=== PATIENT | female | born 1975 | race Caucasian/White ===

== ENCOUNTER 2024-05-25 15:53 | Emergency (ER) | payer MEDICAID ==
[~2024-05-25] VITALS: Ht 149.9 cm; Wt 84.0 kg
[2024-05-25 16:04] VITALS: O2SAT 100
[2024-05-25] MEDS: ACETAMINOPHEN 325MG TABLET PO STA (18:58)
[2024-05-25] MEDS: ONDANSETRON 4MG ODT PO STA (18:58)
[2024-05-25 19:14] LABS: BASOPHILS % 0.7 % (0.0-2.0); EOSINOPHILS % 1.8 % (0.0-5.0); HEMATOCRIT. 38.6 % (36.0-48.0); HEMOGLOBIN. 12.9 g/dL (12.0-16.0); LYMPHOCYTES % 31.2 % (20.0-50.0); MEAN CORPUSCULAR HEMOGLOBIN 29.5 pg (28.0-32.0); MEAN CORPUSCULAR HGB CONC 33.4 g/dL (31.0-37.0); MEAN CORPUSCULAR VOLUME 88.3 fL (81.0-99.0); MEAN PLATELET VOLUME 7.4 fl (7.4-10.4); MONOCYTES % 6.2 % (2.0-8.0); NEUTROPHILS % 60.1 % (40.0-76.0); PLATELET 381 x1000/uL (130-400); RED BLOOD CELL COUNT 4.37 mill/uL (4.2-5.4); RED CELL DISTRIBUTION WIDTH 13.7 % (11.6-14.6); WHITE BLOOD COUNT 12.8 x1000/uL (4.5-11.0)
[2024-05-25 19:23] LABS: CHLORIDE 105 mEq/L (98-107); POTASSIUM 3.9 mEq/L (3.5-5.1); SODIUM 138 mEq/L (136-145)
[2024-05-25 19:24] LABS: CALCIUM 9.7 mg/dL (8.7-10.4); CARBON DIOXIDE 28 mEq/L (21-32); INR 0.9
[2024-05-25 19:29] LABS: CREATININE 0.8 mg/dL (0.6-1.0); GLUCOSE 98 mg/dL (70-105); UREA NITROGEN BLOOD 9 mg/dL (9-23)
[2024-05-25 19:33] LABS: HCG SCREEN NEGATIVE
[2024-05-25] MEDS ORDERED: AMOX1TAB16 MT (21:47)
[2024-05-25 22:26] VITALS: BP 124/65; PULSE 61; RESP 15; TEMP 36.83628; O2SAT 100
== END 2024-05-25 22:28 | disposition home or self-care (01) ==
LOC: ER 15:53
DX: L08.82 Omphalitis not of newborn (principal); Z90.49 Acquired absence of other specified parts of digestive tract; Z88.5 Allergy status to narcotic agent
CPT/HCPCS: 99284; 74176; 80048; 84703; 83605; 83690; 85025; 85610; 87040; 36415; Q0162

== ENCOUNTER 2024-08-15 22:02 | Emergency (ER) | payer MEDICAID ==
[~2024-08-15] VITALS: Ht 147.3 cm; Wt 84.5 kg
[~2024-08-15 22:02] MED LIST: AMOX1TAB16 MT
[2024-08-15 22:14] VITALS: BP 123/80; PULSE 74; RESP 18; TEMP 97.9; O2SAT 97; O2SAT 99
[2024-08-15] MEDS ORDERED: DOXY150T8 MT (22:36)
[2024-08-15] MEDS: IBUPROFEN 600MG TABLET PO ONE (23:00)
[2024-08-15] MEDS: ACETAMINOPHEN 325MG TABLET PO ONE (23:00)
== END 2024-08-15 23:00 | disposition home or self-care (01) ==
LOC: ER 22:02
DX: S60.462A Insect bite (nonvenomous) of right middle finger, initial encounter (principal); M79.644 Pain in right finger(s); Z91.041 Radiographic dye allergy status; Z90.49 Acquired absence of other specified parts of digestive tract; Z88.8 Allergy status to other drugs, medicaments and biological substances; W57.XXXA Bitten or stung by nonvenomous insect and other nonvenomous arthropods, initial encounter; Y93.89 Activity, other specified; Y92.89 Other specified places as the place of occurrence of the external cause; Y99.8 Other external cause status
CPT/HCPCS: 99283

== ENCOUNTER 2025-02-04 15:47 | Emergency (ER) | payer MEDICAID ==
[~2025-02-04] VITALS: Ht 144.8 cm; Wt 83.9 kg
[~2025-02-04 15:47] MED LIST changes: +DOXY150T8 MT
[2025-02-04 15:55] VITALS: O2SAT 99
[2025-02-04 16:48] LABS: BASOPHILS % 0.7 % (0.0-2.0); EOSINOPHILS % 2.2 % (0.0-5.0); HEMATOCRIT. 40.8 % (36.0-48.0); HEMOGLOBIN. 13.8 g/dL (12.0-16.0); LYMPHOCYTES % 45.1 % (20.0-50.0); MEAN CORPUSCULAR HEMOGLOBIN 29.6 pg (28.0-32.0); MEAN CORPUSCULAR HGB CONC 33.8 g/dL (31.0-37.0); MEAN CORPUSCULAR VOLUME 87.5 fL (81.0-99.0); MEAN PLATELET VOLUME 7.5 fl (7.4-10.4); MONOCYTES % 7.9 % (2.0-8.0); NEUTROPHILS % 44.1 % (40.0-76.0); PLATELET 344 x1000/uL (130-400); RED BLOOD CELL COUNT 4.66 mill/uL (4.2-5.4); RED CELL DISTRIBUTION WIDTH 13.3 % (11.6-14.6); WHITE BLOOD COUNT 8.6 x1000/uL (4.5-11.0)
[2025-02-04 16:55] LABS: CHLORIDE 105 mEq/L (98-107); POTASSIUM 3.8 mEq/L (3.5-5.1); SODIUM 140 mEq/L (136-145)
[2025-02-04 16:56] LABS: CARBON DIOXIDE 30 mEq/L (21-32)
[2025-02-04 16:57] LABS: CALCIUM 9.1 mg/dL (8.7-10.4)
[2025-02-04 17:01] LABS: CREATININE 0.8 mg/dL (0.6-1.0)
[2025-02-04 17:02] LABS: GLUCOSE 107 mg/dL (70-105); UREA NITROGEN BLOOD 11 mg/dL (9-23)
[2025-02-04 17:03] LABS: ALANINE AMINOTRANSFERASE 39 IU/L (10-49); ALBUMIN 4.1 g/dL (3.2-4.8); ASPARTATE AMINOTRANSFERASE 38 IU/L (<34); HCG SCREEN NEGATIVE
[2025-02-04 17:04] LABS: BILIRUBIN DIRECT 0.2 mg/dL (<=3.0); BILIRUBIN TOTAL 0.8 mg/dL (0.1-1.0); PROTEIN TOTAL 7.4 g/dL (6.0-8.3)
[2025-02-04 19:11] LABS: TROPONIN I HIGH SENSITIVITY < 4 ng/L (3.0-34)
[2025-02-04 19:30] LABS: CLARITY URINE CLEAR (CLEAR); COLOR URINE YELLOW (YELLOW); GLUCOSE URINE NEGATIVE (NEGATIVE); KETONES URINE NEGATIVE (NEGATIVE); LEUKOCYTE ESTERASE URINE NEGATIVE (NEGATIVE); NITRITE URINE NEGATIVE (NEGATIVE); OCCULT BLOOD URINE NEGATIVE (NEGATIVE); PROTEIN URINE NEGATIVE (NEGATIVE); UROBILINOGEN URINE 0.2 E.U./dL (0.2-1.0)
[2025-02-04] MEDS: METOCLOPRAMIDE HCL 10MG TABLET PO ONE (19:49)
[2025-02-04] MEDS: MAGNESIUM/ALUMINUM HYDROXIDE/SIMETHICONE 30ML UDC PO STA (19:49)
[2025-02-04] MEDS: ACETAMINOPHEN 325MG TABLET PO STA (19:50)
[2025-02-04] MEDS: FAMOTIDINE 20MG TABLET PO ONE (19:51)
[2025-02-04] MEDS ORDERED: FAMO-135 MT (22:19)
[2025-02-04 22:33] VITALS: BP 122/78; PULSE 70; RESP 18; TEMP 36.9; O2SAT 99
== END 2025-02-04 22:47 | disposition home or self-care (01) ==
LOC: ER 15:47
DX: R10.12 Left upper quadrant pain (principal); R51.9 Headache, unspecified; Z88.8 Allergy status to other drugs, medicaments and biological substances; Z90.49 Acquired absence of other specified parts of digestive tract; Z91.041 Radiographic dye allergy status; Z79.899 Other long term (current) drug therapy
CPT/HCPCS: 99284; 70450; 80076; 80048; 81003; 81025; 84703; 83690; 85025; 84484; 36415; 74176; 93005; J8597

== ENCOUNTER 2025-05-19 06:46 | Inpatient (IN) | payer MEDICAID ==
[~2025-05-19] VITALS: Ht 144.8 cm; Wt 84.0 kg
[~2025-05-19 06:46] MED LIST changes: -AMOX1TAB16 MT; +CEPH500T MT; -DOXY150T8 MT; +MUPI22OI2 TOP
[2025-05-19 06:52] VITALS: O2SAT 100
[2025-05-19 07:23] LABS: BASOPHILS % 0.7 % (0.0-2.0); EOSINOPHILS % 0.6 % (0.0-5.0); HEMATOCRIT. 40.5 % (36.0-48.0); HEMOGLOBIN. 13.8 g/dL (12.0-16.0); LYMPHOCYTES % 12.3 % (20.0-50.0); MEAN PLATELET VOLUME 7.3 fl (7.4-10.4); MONOCYTES % 7.7 % (2.0-8.0); NEUTROPHILS % 78.7 % (40.0-76.0); PLATELET 352 x1000/uL (130-400); RED BLOOD CELL COUNT 4.63 mill/uL (4.2-5.4); RED CELL DISTRIBUTION WIDTH 14.3 % (11.6-14.6)
[2025-05-19 07:33] LABS: CREATININE 0.9 mg/dL (0.6-1.0)
[2025-05-19 07:34] LABS: UREA NITROGEN BLOOD 8 mg/dL (9-23)
[2025-05-19] MEDS ORDERED: VANCOMYCIN 1.5GM/250ML 250 ML IV STA (07:34)
[2025-05-19 07:42] LABS: CLARITY URINE CLEAR (CLEAR); COLOR URINE YELLOW (YELLOW); GLUCOSE URINE NEGATIVE (NEGATIVE); KETONES URINE NEGATIVE (NEGATIVE); LEUKOCYTE ESTERASE URINE NEGATIVE (NEGATIVE); NITRITE URINE NEGATIVE (NEGATIVE); OCCULT BLOOD URINE NEGATIVE (NEGATIVE); PH URINE 8.5 (4.5-8.0); PROTEIN URINE NEGATIVE (NEGATIVE); SPECIFIC GRAVITY URINE 1.014 (1.005-1.030); UROBILINOGEN URINE 1.0 E.U./dL (0.2-1.0)
[2025-05-19] MEDS ORDERED: CEFEPIME 2GM IN DEXT 5% 100ML IV ONE (07:45)
[2025-05-19 07:59] LABS: HCG SCREEN NEGATIVE
[2025-05-19] MEDS: ACETAMINOPHEN 1000MG/100ML 100 ML IV ONE (08:01)
[2025-05-19] MEDS: CEFEPIME 2GM/100ML 100 ML IV SCH (08:01)
[2025-05-19 08:16] LABS: ASPARTATE AMINOTRANSFERASE 55 IU/L (<34); BILIRUBIN DIRECT 0.3 mg/dL (<=3.0); BILIRUBIN TOTAL 1.0 mg/dL (0.1-1.0); PROTEIN TOTAL 8.1 g/dL (6.0-8.3)
[2025-05-19] MEDS: METOCLOPRAMIDE HCL 10MG/2ML VIAL IV ONE (08:27)
[2025-05-19 08:34] LABS: INR 1.6
[2025-05-19] MEDS: VANCOMYCIN 1.5GM PMX (XELLIA) 300 ML IV SCH (09:14)
[2025-05-19] MEDS ORDERED: DEXTROSE 50% WATER 50ML SYRINGE IV PRN (10:00)
[2025-05-19] MEDS: INSULIN LISPRO 100 UNITS/ML SUBCUT SCH (10:00)
[2025-05-19] MEDS: PANTOPRAZOLE SODIUM 40 MG/VIAL IV SCH (10:12)
[2025-05-19] MEDS: ENOXAPARIN 30MG/0.3ML SYR SUBCUT SCH (10:12)
[2025-05-19] MEDS: BLOOD SUGAR DIAGNOSTIC STRIP TEST SCH (10:13)
[2025-05-19] MEDS ORDERED: GUAIFENESIN 200MG/10ML SUGAR FREE UDC PO PRN (10:15)
[2025-05-19] MEDS ORDERED: ONDANSETRON HCL 4MG/2ML INJ IV PRN (10:15)
[2025-05-19] MEDS ORDERED: KETOROLAC 15MG/ML VIAL IV PRN (10:15)
[2025-05-19] MEDS ORDERED: DOCUSATE SODIUM 100MG CAPSULE PO PRN (10:15)
[2025-05-19] MEDS ORDERED: MAGNESIUM/ALUMINUM HYDROXIDE/SIMETHICONE 30ML UDC PO PRN (10:15)
[2025-05-19] MEDS ORDERED: IPRATROPIUM/ALBUTEROL 0.5-3(2.5)MG/3ML NEB HHN PRN (10:15)
[2025-05-19] MEDS ORDERED: ACETAMINOPHEN 325MG TABLET PO PRN (10:15)
[2025-05-19] MEDS ORDERED: CLONIDINE 0.1MG TABLET PO PRN (10:15)
[2025-05-19] MEDS: DEXT 5%/LACTATED RINGERS 1,000 ML IV SCH (10:40)
[2025-05-19 11:30] VITALS: BP 110/60; PULSE 87; RESP 18; TEMP 36.6404
[2025-05-19 12:00] VITALS: BP 110/60; PULSE 87; RESP 18; TEMP 36.6; O2SAT 100
[2025-05-19] MEDS ORDERED: ADAL40PE SQ (12:06)
[2025-05-19] MEDS: SUCRALFATE 1G TABLET PO SCH (12:27)
[2025-05-19] MEDS: ACETAMINOPHEN 325MG TABLET PO PRN (12:32)
[2025-05-19 13:08] LABS: PHOSPHORUS 1.7 mg/dL (2.5-4.9)
[2025-05-19 16:00] VITALS: BP 96/49; PULSE 80; RESP 17; TEMP 36.7; O2SAT 99
[2025-05-19 18:10] LABS: CREATINE KINASE MB FRACTION < 0.5 ng/mL (0.5-3.6); TROPONIN I HIGH SENSITIVITY < 4 ng/L (3.0-34)
[2025-05-19 18:58] LABS: INFLUENZA TYPE A Presumptive Negative (Pres. Neg.)
[2025-05-19 18:59] LABS: INFLUENZA TYPE B Presumptive Negative (Pres. Neg.); RESPIRATORY SYNCYTIAL VIRUS Not Detected (Not Detectd)
[2025-05-19 20:00] VITALS: BP 125/60; PULSE 105; RESP 18; TEMP 36.7; O2SAT 98
[2025-05-20] VITALS: BP 127/77; PULSE 90; RESP 16; TEMP 36.7; O2SAT 98
[2025-05-20 00:06] LABS: CREATINE KINASE MB FRACTION < 0.5 ng/mL (0.5-3.6)
[2025-05-20 00:07] LABS: TROPONIN I HIGH SENSITIVITY < 4 ng/L (3.0-34)
[2025-05-20 04:00] VITALS: BP 106/55; PULSE 88; RESP 20; TEMP 36.7; O2SAT 98
[2025-05-20 06:27] LABS: BASOPHILS % 0.7 % (0.0-2.0); EOSINOPHILS % 0.2 % (0.0-5.0); HEMATOCRIT. 39.0 % (36.0-48.0); HEMOGLOBIN. 13.0 g/dL (12.0-16.0); LYMPHOCYTES % 48.3 % (20.0-50.0); MEAN PLATELET VOLUME 8.0 fl (7.4-10.4); MONOCYTES % 11.9 % (2.0-8.0); NEUTROPHILS % 38.9 % (40.0-76.0); PLATELET 296 x1000/uL (130-400); RED BLOOD CELL COUNT 4.43 mill/uL (4.2-5.4); RED CELL DISTRIBUTION WIDTH 14.1 % (11.6-14.6)
[2025-05-20 06:29] LABS: CREATININE 0.8 mg/dL (0.6-1.0); TRIGLYCERIDE 119 mg/dL (0-150); UREA NITROGEN BLOOD 7 mg/dL (9-23)
[2025-05-20 06:30] LABS: LDL CHOLESTEROL 107 mg/dL (5-100); T4 FREE 1.11 ng/dL (0.89-1.76)
[2025-05-20 08:00] VITALS: BP 107/58; PULSE 69; RESP 16; TEMP 36.3; O2SAT 98
[2025-05-20] MEDS: MULTIVITAMINS,THER W-MINERALS TABLET PO SCH (09:26)
[2025-05-20] MEDS: POTASSIUM CHLORIDE 20MEQ TABLET SR PO NR (09:26)
[2025-05-20] MEDS: MAGNESIUM 2 G PREMIX 50 ML IV NR (09:27)
[2025-05-20 10:02] LABS: *AMPHETAMINES SCREEN URINE NEGATIVE (NEGATIVE); *BARBITURATES SCREEN URINE NEGATIVE (NEGATIVE); *BENZODIAZEPINES SCREEN URINE NEGATIVE (NEGATIVE); *COCAINE SCREEN URINE NEGATIVE (NEGATIVE); METHADONE URINE SCREEN NEGATIVE (NEGATIVE)
[2025-05-20 10:03] LABS: CANNABINOID URINE SCREEN NEGATIVE (NEGATIVE); ECSTASY MDMA SCREEN URINE NEGATIVE (NEGATIVE); OPIATES URINE SCREEN NEGATIVE (NEGATIVE); PHENCYCLIDINE URINE SCREEN NEGATIVE (NEGATIVE)
[2025-05-20 11:13] LABS: ASPARTATE AMINOTRANSFERASE 51 IU/L (<34); BILIRUBIN DIRECT 0.3 mg/dL (<=3.0); BILIRUBIN TOTAL 0.9 mg/dL (0.1-1.0); PROTEIN TOTAL 7.1 g/dL (6.0-8.3)
[2025-05-20] MEDS: POTASSIUM PHOSPHATE 20 MMOL in DEXT 5% WATER 243.3333 ML IV NR (12:10)
[2025-05-20 12:23] VITALS: BP 108/63; PULSE 69; RESP 16; TEMP 36.7; O2SAT 99
[2025-05-20] MEDS ORDERED: PROT20 MT (14:32)
[2025-05-20 16:00] VITALS: BP 91/49; PULSE 56; RESP 16; TEMP 36.3; O2SAT 96
[2025-05-20 18:02] VITALS: BP 106/64; PULSE 60; TEMP 98
== END 2025-05-20 19:00 | disposition home or self-care (01) | DRG 720 ==
LOC: ER 06:46 → 6WST 09:08 → EDBEDREQ 09:10 → EDBEDREQTM 09:10 → ENRESERV 10:36
PROVIDERS: ADMIT Hospitalist; ATTEND Hospitalist
DX: A41.89 Other specified sepsis (principal); D68.9 Coagulation defect, unspecified; K76.0 Fatty (change of) liver, not elsewhere classified; R10.9 Unspecified abdominal pain; M06.9 Rheumatoid arthritis, unspecified; R73.9 Hyperglycemia, unspecified; K29.70 Gastritis, unspecified, without bleeding; E66.9 Obesity, unspecified; R16.0 Hepatomegaly, not elsewhere classified; Z20.822 Contact with and (suspected) exposure to COVID-19; Z68.41 Body mass index [BMI] 40.0-44.9, adult; Z90.49 Acquired absence of other specified parts of digestive tract; Z90.81 Acquired absence of spleen; Z98.84 Bariatric surgery status; T39.4X5A Adverse effect of antirheumatics, not elsewhere classified, initial encounter; Y92.89 Other specified places as the place of occurrence of the external cause; B34.9 Viral infection, unspecified
CPT/HCPCS: 36415; 71045; 74176; 80048; 80061; 80076; 80305; 81003; 82550; 82553; 82962; 82977; 83036; 83605; 83735; 84100; 84145; 84439; 84443; 84484; 84703; 85025; 85651; 87420; 87426; 87804; 93005; 99291; J0692; J1650; J2470; J2765; J3373; J3475; J3490; J7060; J0131